=== PATIENT | male | born 1995 ===

== ENCOUNTER 2024-03-07 03:49 | Emergency (ER) | payer BC ==
[~2024-03-07] VITALS: Ht 172.7 cm; Wt 86.2 kg
[2024-03-07 04:57] LABS: Influenza A, PCR NEGATIVE (NEGATIVE); Influenza B, PCR NEGATIVE (NEGATIVE); Resp Syncytial Virus, PCR NEGATIVE (NEGATIVE); SARS-Cov-2 (COVID-19) PCR, MMC NEGATIVE (NEGATIVE)
[2024-03-07] MEDS ORDERED: Dexamethasone Sod Phos 10 MG/ML 1ML VIAL PO ONE (06:25)
== END 2024-03-07 06:32 | disposition home or self-care (01) ==
LOC: ER 03:49
PROVIDERS: Emergency Medicine
DX: J06.9 Acute upper respiratory infection, unspecified (principal); K12.2 Cellulitis and abscess of mouth
CPT/HCPCS: 0241U; 87430; 99283; J1100